=== PATIENT | male | born 1980 | race Caucasian/White ===

== ENCOUNTER 2018-05-05 14:21 | Emergency (ER) | payer SELFPAY ==
[~2018-05-05] VITALS: Wt 76.9 kg
[2018-05-05 14:24] VITALS: BP 126/65; PULSE 79; RESP 19
[2018-05-05] MEDS ORDERED: ONDANSETRON (ODT) 4 MG TAB ODT STA (14:42)
[2018-05-05] MEDS ORDERED: morphine LIQ (10 MG/5 ML) CUP PO ONE (15:00)
--- NOTE | 2018-05-05 15:22 | ERD ---
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 The pain is constant, worsened by deep inspiration and movement. /10. No head trauma. The patient denies drug breath, no abdominal pain. ROS All systems reviewed and are negative except as per history of present illness. Medications Home Meds Active Scripts Ibuprofen* (Motrin*) 600 Mg Tab, 600 MG PO Q8, #15 TAB Prov:LALO ARSHAD MD 05/05/18 Acetaminophen* (Tylenol*) 325 Mg Tablet, 2 TAB PO Q8 PRN for PAIN AND OR ELEVATED TEMP, #20 TAB Prov:LALO ARSHAD MD 05/05/18 Hydrocodone/Acetaminophen ([place] 5-325 Tablet) 1 Each Tablet, 1 TAB PO QHS PRN for PAIN, #7 TAB Prov:LALO ARSHAD MD 05/05/18 Allergies Allergies: Coded Allergies: No Known Allergy (Unverified , 05/05/18) PMhx/Soc Medical and Surgical Hx: pt denies Medical Hx, pt denies Surgical Hx History of Surgery: No Anesthesia Reaction: No Hx Neurological Disorder: No Hx Respiratory Disorders: No Hx Cardiac Disorders: No Hx Psychiatric Problems: No Hx Miscellaneous Medical Probl: No Hx Alcohol Use: No Hx Substance Use: No Hx Tobacco Use: No Smoking Status: Never smoker Physical Exam Vitals Vital Signs Date Temp Pulse Resp B/P (MAP) Pulse Ox O2 O2 Flow FiO2 Time Delivery Rate 05/05/18 98.2 79 19 126/65 100 14:24 (85) Physical Exam Patient alert, oriented, vital signs stable. HEENT: Normocephalic, atraumatic. EYES: PERRLA, EOMI, Sclera and conjunctiva appear normal. EARS: Canals clear, tympanic membranes WNL. THROAT: Normal oropharynx. NECK: Supple, No lymphadenopathy. Full ROM without pain or tenderness. HEART: RRR, no rubs, murmurs, clicks or gallops. LUNGS: Clear to auscultation. Left lower chest wall tenderness with ecchymosis and superficial abrasion. ABDOMEN: Soft, non-tender without masses or hepatosplenomegaly. EXTREMITIES: No edema bilaterally. BACK: Full ROM, no deformity, normal back exam NEURO: Cranial nerves grossly intact, no motor or sensory deficit Results 24 hrs Current Medications Medications Dose Sig/Luke Start Time Status Last (Trade) Ordered Route PRN Stop Time Admin Dose Reason Admin Morphine 10 mg ONCE ONCE 05/05/18 DC 05/05/18 Sulfate PO 15:00 14:53 (morphine) 05/05/18 15:01 Ondansetron 8 mg ONCE STAT 05/05/18 DC 05/05/18 HCl (Zofran ODT 14:42 14:53 Odt) 05/05/18 14:45 [place] [id number] Radiology Main Line: [phone] DIAGNOSTIC IMAGING REPORT Patient: REDD BURNETT : 1980 Age: 37 Sex: M MR #: [id number] DOS: 05/05/18 1442 Ordering MD: LALO ARSHAD MD Location: [facility] Room/Bed: PROCEDURE: CT Abdomen and Pelvis without contrast. CLINICAL INDICATION: Left flank pain, fall TECHNIQUE: CT of the abdomen and pelvis without IV contrast. Coronal and sagittal reformatted images. DICOM images are available. One or more of the following dose reduction techniques were used: automated exposure control, adjustment of the mA and/or kV according to patient size, use of iterative reconstruction technique. CTDI 8.6 mGy, DLP 523 mGy-cm. COMPARISON: None. FINDINGS: Lower thorax: Normal Liver: Moderate steatosis. Biliary: Normal gallbladder. No biliary dilatation. Pancreas: Normal Spleen: Normal Adrenal glands: Normal Genitourinary: Small nonobstructive left renal calculi are noted measuring up to 3 mm, without ureterolithiasis or obstructive uropathy. Unremarkable right kidney and urinary bladder. Vascular: No abdominal aortic aneurysm. Lymph nodes: No lymphadenopathy. Gastrointestinal: No bowel obstruction. Normal appendix. No diverticulosis, diverticulitis or colitis. Peritoneum: No free air, free fluid, abscess or hemoperitoneum. Reproductive organs: Normal Musculoskeletal: Minimally displaced acute fractures of the left ninth through twelfth ribs posterolaterally. IMPRESSION: 1. Minimally displaced acute fractures of the left ninth through twelfth ribs posterolaterally. 2. No other evidence of acute traumatic injury is identified. 3. Small nonobstructive left renal calculi are noted, without ureterolithiasis or obstructive uropathy. 4. Moderate hepatic steatosis. RPTAT: AAQQ .Andrew Rowland MD, Date Time Electronically viewed and signed by .Andrew Rowland MD, on 05/05/2018 15:10 .R/ CC: LALO ARSHAD MD [id number] DIAGNOSTIC IMAGING REPORT Patient: REDD BURNETT : 1980 Age: 37 Sex: M MR #: [id number] DOS: 05/05/18 1529 Ordering MD: LALO ARSHAD MD Location: [facility] Room/Bed: PROCEDURE: CT Chest without IV contrast CLINICAL INDICATION: Left rib fracture TECHNIQUE: CT of the chest without IV contrast. Coronal and sagittal reformatted images. One or more of the following dose reduction techniques were used: automated exposure control, adjustment of the mA and/or kV according to patient size, use of iterative reconstruction technique. DICOM images are available. CTDI 11.7 mGy, DLP 541 mGy-cm. COMPARISON: CT abdomen pelvis, 05/05/2018 FINDINGS: Lungs: Mild bibasilar atelectasis. Trace right pleural fluid. No acute infiltrate or pneumothorax. No pulmonary nodule or mass. Cardiovascular: Normal heart size. No thoracic aortic aneurysm. Lymph nodes: No lymphadenopathy. Mediastinum: No mediastinal mass. Upper abdomen: Moderate hepatic steatosis. Small nonobstructive left renal calculi. Musculoskeletal: Minimally displaced acute fractures of the left ninth through twelfth ribs posterolaterally. IMPRESSION: 1. Minimally displaced acute fractures of the left ninth through twelfth ribs posterolaterally. 2. Trace left pleural fluid. No pneumothorax. 3. No evidence of mass, lymphadenopathy, or acute infiltrate. 4. Moderate hepatic steatosis. 5. Small nonobstructive left renal calculi, without ureterolithiasis or obstructive uropathy. RPTAT: AAQQ .Andrew Rowland MD, MD Date Time Electronically viewed and signed by .Andrew Rowland MD, on 05/05/2018 16:02 .R/ CC: LALO ARSHAD MD [id number] Procedures/MDM Vital signs stable, no respiratory distress. Differential diagnosis include but not limited to: Soft tissue contusion, sprain/strain, muscle spasm, fracture. Neurovascular exam grossly intact. Physical examination and clinical presentation consistent most likely with closed, nondisplaced fracture of [address] of the abdomen negative for intra- abdominal injuries, CT of the chest negative for lung contusion. During the ED course the patient remained stable, without complaints, pain controlled with the medications given. Results and clinical impression discussed with patient who agrees with management. The patient is stable to be treated outpatient and will be discharged home with recommendations and close monitoring The patient was instructed to follow up with the primary care provider in the next 48h. If symptoms persist, worsen or new symptoms develop, then patient should return to the ED immediately. Instructions explained and given to patient with acknowledgment and demonstrated understanding. Disclaimer: Inadvertent spelling and grammatical errors are likely due to EHR/dictation software use and do not reflect on the overall quality of patient care. Also, please note that the electronic time recorded on this note does not necessarily reflect the actual time of the patient encounter. Departure Diagnosis: Primary Impression: Fracture four ribs-closed Additional Impression: Fall from slip, trip, or stumble Condition: Stable Additional Instructions: Muchas krishna por [facility] para johnson servicio. Esperamos que en johnson visita a la oscar de emergencia johnson problema medico haya sido solucionado y que se sienta mucho mejor. Para estar seguros que johnson mejoria sigue en proceso, le pedimos el favor de hacer tam josep de seguimiento medico con johnson doctor primario en los proximos 2-4 juarez. Lleve con usted estos documentos y las medicinas recetadas. Si michele sintomas empeoran, NO SE ESPERE, por favor regrese a oscar de emergencia INMEDIATAMENTE. En domenica que usted no tenga un mdico de atencin primaria: Llame al mdico o clnica comunitaria de referencia que aparece abajo adam las horas de consultorio para hacer tam josep para que le vean. CLINICAS: [facility] [phone] [address] [phone] [address] [facility] [phone] [address] [facility] [phone] [facility] [phone] [facility] [phone] LALO LEVINE MD May 05, 2018 15:22
[2018-05-05] MEDS ORDERED: IBUP-1542 PO (17:18)
[2018-05-05] MEDS ORDERED: HYDR-4011 PO (17:18)
[2018-05-05] MEDS ORDERED: ACET325T33 PO (17:18)
== END 2018-05-05 17:20 | disposition home or self-care (01) ==
LOC: FTE 14:21
DX: S22.42XA Multiple fractures of ribs, left side, initial encounter for closed fracture (principal); W01.0XXA Fall on same level from slipping, tripping and stumbling without subsequent striking against object, initial encounter; Y92.9 Unspecified place or not applicable
CPT/HCPCS: 71250; 73562; 74176